=== PATIENT | female | born 1945 | race Caucasian/White ===

== ENCOUNTER → 2018-05-16 | Outpatient (CLI) | payer MEDICARE, OTHER ==
[2018-05-16 10:34] LABS: CALCIUM 8.5 mg/dL (8.4-10.2); POTASSIUM 3.8 mmol/L (3.6-5.0)
== END ==
LOC: LAB 09:29
PROVIDERS: Internal Medicine Cardiovascular Disease
DX: Z51.81 Encounter for therapeutic drug level monitoring (principal); Z79.899 Other long term (current) drug therapy

== ENCOUNTER → 2018-06-06 | Outpatient (CLI) | payer MEDICARE, OTHER ==
[2018-06-06 10:58] LABS: CALCIUM 8.9 mg/dL (8.4-10.2); POTASSIUM 4.6 mmol/L (3.6-5.0)
== END ==
LOC: LAB 10:32
PROVIDERS: Internal Medicine Cardiovascular Disease
DX: Z79.899 Other long term (current) drug therapy (principal)

== ENCOUNTER → 2018-07-18 | Outpatient (CLI) | payer MEDICARE, OTHER | LOC: RAD 09:07 → MAMMO 09:15 | DX: Z13.820 Encounter for screening for osteoporosis (principal); M85.80 Other specified disorders of bone density and structure, unspecified site; Z87.81 Personal history of (healed) traumatic fracture ==

== ENCOUNTER → 2020-03-29 | Outpatient (CLI) | payer MEDICARE, OTHER | LOC: VAS 14:50 → RAD 16:30 | DX: I34.0 Nonrheumatic mitral (valve) insufficiency (principal) ==

== ENCOUNTER → 2020-06-16 | Outpatient (CLI) | payer MEDICARE, OTHER | LOC: MAMMO 11:26 | DX: Z13.820 Encounter for screening for osteoporosis (principal); M81.0 Age-related osteoporosis without current pathological fracture ==

== ENCOUNTER 2023-10-09 11:23 | Inpatient (IN) | payer MEDICARE, OTHER ==
[~2023-10-09] VITALS: Ht 157.5 cm; Wt 63.8 kg
[2023-10-09 11:42] VITALS: BP 150/90
[2023-10-09] MEDS ORDERED: PACERONE200 MG PO (11:47)
[2023-10-09] MEDS ORDERED: ASPIRIN 32325 MG/TAB PO (11:53)
[2023-10-09] MEDS ORDERED: VITAMIN D325 MC7 PO (11:57)
[2023-10-09] MEDS ORDERED: LEXAPRO 10MG10 MG PO (11:58)
[2023-10-09] MEDS ORDERED: SYNTHROID RP0.088 MG PO (11:59)
[2023-10-09] MEDS ORDERED: DESYREL50 MG PO (12:00)
[2023-10-09] MEDS ORDERED: CYCLOBENZ5 MG PO (12:01)
[2023-10-09] MEDS ORDERED: LASIX20 M1 PO (12:03)
[2023-10-09] MEDS ORDERED: ROXICODONE 55 MG/TAB PO (12:04)
[2023-10-09] MEDS ORDERED: POTASSIUM CHLO10 ME7 PO (12:05)
[2023-10-09] MEDS ORDERED: ACETAMINOPHEN325 M1 PO (12:07)
[2023-10-09] MEDS ORDERED: ZOFRAN ODT4 MG PO (12:08)
[2023-10-09] MEDS ORDERED: oxyCODONE/Acetaminophen 5-325 MG TAB PO PRN (14:15)
[2023-10-09 15:43] VITALS: BP 153/72
[2023-10-09 17:34] VITALS: BP 153/72
--- NOTE | 2023-10-09 18:17 | NUR ---
PATIENT ADMITTED FOR SWING BED SERVICES. A&O X 4. INCISION TO RIGHT LATERAL LEG FREE FROM REDNESS OR DRAINAGE. HANSA WERE REMOVED AT ORTHO APPOINTMENT TODAY, STERI STRIPS APPLIED. PATIENT HAS WOUND ON RIGHT HEEL FROM USING THAT LEG TO PUSH SELF BACK INTO HOUSE AFTER FALL. WOUND IS CDI AT THIS TIME. PATIENT IS WBAT WITH TRANSFERS ONLY. MEDS ARE TAKEN WHOLE. DENIES NEEDS AT THIS TIME. CALL LIGHT IN REACH
[2023-10-09] MEDS ORDERED: oxyCODONE 5 MG TAB PO PRN (19:15)
[2023-10-09] MEDS ORDERED: Acetaminophen 325 MG TAB PO PRN (20:15)
[2023-10-09] MEDS ORDERED: Furosemide 20 MG TAB PO PRN (20:15)
[2023-10-09 20:31] VITALS: BP 110/81
[2023-10-09] MEDS ORDERED: Aspirin 325 MG TAB PO SCH (21:00)
[2023-10-09] MEDS ORDERED: Cyclobenzaprine 10 MG TAB PO SCH (21:00)
[2023-10-09] MEDS ORDERED: traZODone 50 MG TAB PO SCH (21:00)
[2023-10-09] MEDS ORDERED: oxyCODONE 5 MG TAB PO SCH (22:45)
[2023-10-09 23:38] LABS: URINE APPEARANCE CLEAR (CLEAR); URINE COLOR YELLOW (YELLOW)
[2023-10-09 23:40] LABS: URINE BILIRUBIN NEGATIVE (NEGATIVE); URINE GLUCOSE NEGATIVE (NEGATIVE); URINE KETONE NEGATIVE (NEGATIVE); URINE PROTEIN(semi-quant) NEGATIVE (NEGATIVE)
[2023-10-09 23:46] LABS: URINE BLOOD TRACE-INTACT (NEGATIVE); URINE LEUKOCYTE ESTERASE TRACE (NEGATIVE); URINE NITRATE NEGATIVE (NEGATIVE)
[2023-10-10 05:30] VITALS: BP 125/75
[2023-10-10] MEDS ORDERED: oxyCODONE 5 MG TAB PO SCH (06:00)
[2023-10-10 06:19] LABS: BASO # 0.06 K/mm3 (0.02-0.10); EOS # 0.17 K/mm3 (0.04-0.40); EOS % 3.8 % (1.0-5.0); HEMATOCRIT 36.7 % (37.0-47.0); HEMOGLOBIN 11.5 g/dL (12.5-16.0); LYMPH# 1.38 K/mm3 (1.50-4.00); MEAN CELL VOLUME 104 fl (78-100); MEAN CORPUSCULAR HEMOGLOBIN 33 pg (27-31); MEAN CORPUSCULAR HGB CONC 31 g/dL (33-37); MEAN PLATELET VOLUME 9.7 fl (7.4-10.4); MONO # 0.45 K/mm3 (0.20-0.80); NEU # 2.35 K/mm3 (1.40-6.50); PLATELET COUNT 264 K/mm3 (130-400); RED BLOOD COUNT 3.52 M/mm3 (4.10-5.30); RED CELL DISTRIBUTION WIDTH 16.2 % (11.5-14.5); WHITE BLOOD COUNT 4.4 K/mm3 (4.8-10.8)
[2023-10-10 06:23] LABS: ALBUMIN 3.4 g/dL (3.4-4.8)
[2023-10-10 06:24] LABS: CALCIUM 8.8 mg/dL (8.3-10.5)
[2023-10-10 06:26] LABS: TOTAL PROTEIN 6.1 g/dL (6.2-8.1)
[2023-10-10 06:27] LABS: TOTAL BILIRUBIN 0.74 mg/dL (0.2-1.2)
--- NOTE | 2023-10-10 07:00 | NUR ---
REPORT RECEIVED FROM LITZY PETTY
--- NOTE | 2023-10-10 07:30 | NUR ---
PATIENT RESTING IN BED WITH EYES OPEN, TV ON. A&Ox4, STATES MINIMAL PAIN TO LEFT LEG AT THIS TIME. ASSESSMENT COMPLETE. PATIENT DENIES OTHER NEEDS OR COMPLAINTS AT THIS TIME. BED ALARM ON, CALL LIGHT WITHIN REACH.
[2023-10-10 08:33] VITALS: BP 130/74
[2023-10-10] MEDS ORDERED: Amiodarone 200 MG TAB PO SCH (09:00)
[2023-10-10] MEDS ORDERED: Escitalopram 10 MG TAB PO SCH (09:00)
--- NOTE | 2023-10-10 10:30 | NUR ---
REPORT TO LITZY JIMENEZ
--- NOTE | 2023-10-10 10:30 | NUR ---
RESUMED CARE FROM LITZY ROBLES.
--- NOTE | 2023-10-10 10:30 | NUR ---
RESUMED CARE FROM [facility] [employer].
[2023-10-10] MEDS ORDERED: Polyethylene Glycol 3350 Powder 17 GM PACKET PO PRN (13:45)
[2023-10-10 17:17] VITALS: BP 118/69
--- NOTE | 2023-10-10 20:15 | NUR ---
Patient CGA to pivot transfer to BSC. Voids and wipes self. Rests self back in bed. Alert and oriented x 4. HS meds reviewed and given. Dressing to right foot CDI. Refuses to float heel RLE and heel protector. LLE elevated on pillow. Declines snack.
--- NOTE | 2023-10-11 04:11 | NUR ---
PATIENT AWAKE. STATES SHE SLEPT WELL THIS NOC. PAIN MED GIVEN. STATES SHE USES [facility] FOR MAIL IN RX. NOT FOUND ON PHARMACY LIST. BACK UP IS [facility].
[2023-10-11 05:46] VITALS: BP 131/75
--- NOTE | 2023-10-11 06:45 | NUR ---
RESUMED CARE FROM LITZY SANTANA.
[2023-10-11] MEDS ORDERED: Docusate Sodium 100 MG CAP PO SCH (09:00)
[2023-10-11 17:28] VITALS: BP 111/71
--- NOTE | 2023-10-11 18:46 | NUR ---
REPORT TO DAYANA ARBOLEDA.
--- NOTE | 2023-10-11 21:26 | NUR ---
Report received from Luba MCGHEE. Patient calls for assist to BR. Assisted 1:1 pivot transfer, NWB to LLE from bed to W/C and W/C to toilet and back. Tolerated well. A/O x4. Rates pain to LLE 10, "a tight band feeling". ice applied. Incision W/A and RG. L heel dressing removed. Heel blackened, dry and boggy. Skin intact. Rewrapped and floated. Assessment completed. HS medications taken whole without difficulty. Denies questions, wants or needs. Bed alarm on. Call light in reach.
[2023-10-12 05:33] VITALS: BP 109/64
--- NOTE | 2023-10-12 06:26 | NUR ---
Rested well. Medication for pain provided per schedule. Up to BR PRN with assist of staff.
--- NOTE | 2023-10-12 06:56 | NUR ---
Report to Elle MCGHEE.
--- NOTE | 2023-10-12 07:05 | NUR ---
RECEIVED REPORT FROM DAYANA ARBOLEDA
[2023-10-12] MEDS ORDERED: Lidocaine 4% Topical Patch TP SCH (09:00)
[2023-10-12 17:27] VITALS: BP 117/62
--- NOTE | 2023-10-12 18:34 | NUR ---
PATIENT IS A&O X 4. HAS BEEN UP TO CHAIR WITH ON ASSIST PIVOT NWB ON LEFT LEG. INCISION IS FREE FROM REDNESS AND DRAINAGE. HAD A SHOWER TODAY. HAS C/O PAIN 7/10 WITH RELIEF FROM PAIN MEDS. DENIES NEEDS AND USES CALL LIGHT SYSTEM.
--- NOTE | 2023-10-12 19:08 | NUR ---
Report received from Elle MCGHEE. Patient resting supine in bed. MACHINE PACKER assisted back from BR. Pivot transfer from Bed to W/C and back. Heel dressing changed at this time, patient had shower today. No change from last nights assessment. L hip incision W/A with peeling SS. +1 edema. Rates pain 02/17. Has schedule roxycodone. States still no BM. Miralax offered and taken at this time. Assessment completed. Denies wants or needs. Bed alarm on. Call light in reach.
--- NOTE | 2023-10-12 22:34 | NUR ---
Having cramps in R ankle area. Had flexeril and oxycodone already. Dressing removed from R heel/ankle area. Tylenol given.
--- NOTE | 2023-10-13 05:24 | NUR ---
Awake, up to BR with assist. Rates pain 6/10 to LLE. Schedule oxycodone and Synthroid taken at this time.
[2023-10-13 05:32] VITALS: BP 106/59
--- NOTE | 2023-10-13 07:00 | NUR ---
REPORT RECEIVED FROM DAYANA ARBOLEDA
--- NOTE | 2023-10-13 07:21 | NUR ---
Report to [facility] HOME ECONOMICS EXPERT.
--- NOTE | 2023-10-13 08:30 | NUR ---
PATIENT UP TO CHAIR. A&Ox4. STATES MINIMAL PAIN TO LEFT UPPER LEG. PATIENT STATES CONCERN WITH CONSTIPATION AND OPIOD PAIN MEDICATIONS. EDUCATION GIVEN. PROVIDER AWARE. PATIENT DENIES OTHER NEEDS OR COMPLAINTS AT THIS TIME. CALL LIGHT WITHIN REACH
[2023-10-13 18:10] VITALS: BP 144/82
--- NOTE | 2023-10-13 19:11 | NUR ---
REPORT TO DAYANA ARBOLEDA
--- NOTE | 2023-10-13 19:41 | NUR ---
Report received from Sara ANNE. Patient assisted to BR via pivot transfer, NWB to LLE, from Bed, W/C then toilet. Transfers well. Independent with cares. Voids and assisted back to bed. Rates pain 6/10, intermittently but tolerable. Has been self weening off narcotic analgesic by spreading times out further. A/O x4. Assessment completed. L hip incision W/A with 1 peeling steri-strip in place. Heel dressing rewrapped. Refused to float heel at this time.
[2023-10-13] MEDS ORDERED: Bisacodyl 5 MG TAB PO SCH (21:00)
--- NOTE | 2023-10-13 21:21 | NUR ---
Having cramps acrossed bridge of R foot again tonight. Has episode last night. Has received flexeril PO HS per schedule. Scheduled oxycodone administered at this time. Bandage removed from R foot at this time for awhile and heel floated.
--- NOTE | 2023-10-14 06:24 | NUR ---
Up to BR with assist. Voids and back to bed. Refused to have R heel rewrapped this AM, has been having cramps in that foot at night and wrapped removed for comfort. Heel floated on pillow.
[2023-10-14 06:36] VITALS: BP 115/73
--- NOTE | 2023-10-14 07:15 | NUR ---
Report to Idalia MCGHEE
[2023-10-14 15:32] VITALS: BP 99/59
[2023-10-14] MEDS ORDERED: oxyCODONE 5 MG TAB PO PRN (17:25)
--- NOTE | 2023-10-14 18:06 | NUR ---
Report received from Neeta MCGHEE. Pt is doing well today. She states she wants to take the roxicodone PRN instead of scheduled because her pain is improving and she is concerned about constipation. will address wit hMinges. Denies other needs, will give report to nightshift nurse who will resumee care.
--- NOTE | 2023-10-14 20:00 | NUR ---
Report received from Iris MCGHEE. Patient assisted to BR by this nurse. Pivot transfer from bed-W/C-toilet and back. Maintains NWB status to LLE. Rates pain to L hip 02/17, incision W/A, RG. Wants pain relief at 2100 with HS medications. Assessment completed. Bed alarm on. Call light in reach.
--- NOTE | 2023-10-14 22:56 | NUR ---
Having foot cramps and L hip cramps again. Sits on EOB with no relief. Dr. Ho notified. Tylenol given at this time. Patient has already had scheduled flexeril and PRN Oxycodone. Labs ordered for AM. Covers removed from feet.
--- NOTE | 2023-10-15 02:14 | NUR ---
Calls for assist to BR. Requests analgesic for pain to L hip and R foot cramp 02/17. Oxycodone taken at this time.
[2023-10-15 05:35] VITALS: BP 125/71
[2023-10-15 07:02] LABS: CALCIUM 8.1 mg/dL (8.3-10.5)
--- NOTE | 2023-10-15 07:05 | NUR ---
Report to Janay MCGHEE.
[2023-10-15 07:09] LABS: MAGNESIUM 1.91 mg/dL (1.60-2.60)
--- NOTE | 2023-10-15 17:52 | NUR ---
PATIENT IS ALERT AND ORIENTED X4. SHE IS PLEASENT. SHE HAD COMPAINTS OF BACK PAIN AND HAS AN ORDER FOR A LIDOCAINE PATCH. SHE HAS COMPLIAINTS OF LEFT KNEE PAIN THAT RADIATES TO LEFT HIP AND DESCRIBES IT CRAMPING. SHE HAD A FRIEND BRING IN PICKLE JUICE TO HELP WITH THAT. PATIENT HAS A PRESSURE ULCER ON RIGHT HEEL.MEPILEX WAS APPLIED FOR OFF LOADING. ULCER MEASURES 8CM X 4 CM. PATIENT IS CONCERNED ABOUT TAKING HER STOOL SOFTENER AND ENDING UP WITH LOOSE STOOLS. SHE WAS INFORMED THAT IF SHE WANTED TO HOLD IT/REFUSE SHE COULD, BUT WITH HER TAKING THE PRN OXYCODONE, HER BOWELS MIGHT SLOW DOWN. SHE VOICED UNDERSTANDING.
[2023-10-15 18:06] VITALS: BP 162/81
--- NOTE | 2023-10-15 20:56 | NUR ---
PT RESTING IN BED. REPORTS PAIN BUT DOES NOT WANT TO TAKE AN OXYCODONE TILL LATER. TYLENOL WAS OFFERED AND TAKEN. NURSE HAD TO EXPLAINE TO PT THAT THE TYLENOL WAS OKAY TO BE TAKEN EVEN IF SHE TAKE OXCODONE LATER. INCISION ON LEFT OUTTER THIGH IS INTACT AND DRY WITH NO REDNESS. PT REMAINES NONWEIGHT BEARING ON LEFT LEG IS ABLE TO PREFORM PIVOT TRANSFERS AND USES WHEELCHAIR FOR TRANSFERES. PT IS ABLE TO MAKE NEEDS KNOWN WHEN NEEDED. CALL LIGHT IN REACH ENCOURAGED TO CALL FOR ASSIST IF NEEDED.
--- NOTE | 2023-10-15 22:00 | NUR ---
PT REQUEST OXYCODONE FOR LEFT HIP/LEG PAIN 02/17.
--- NOTE | 2023-10-15 23:52 | NUR ---
PT UP TO THE BATHROOM COMPLAINS OF CONTINUED KNEE PAIN. PT REQUEST ANOTHER OXYCODONE.
[2023-10-16 05:44] VITALS: BP 136/67
--- NOTE | 2023-10-16 06:45 | NUR ---
RESUMED CARE FROM LITZY ERNANDEZ.
[2023-10-16 07:33] LABS: BASO # 0.04 K/mm3 (0.02-0.10); EOS # 0.11 K/mm3 (0.04-0.40); EOS % 2.7 % (1.0-5.0); HEMATOCRIT 35.1 % (37.0-47.0); LYMPH# 1.33 K/mm3 (1.50-4.00); MEAN CELL VOLUME 103 fl (78-100); MEAN CORPUSCULAR HEMOGLOBIN 32 pg (27-31); MEAN CORPUSCULAR HGB CONC 31 g/dL (33-37); MEAN PLATELET VOLUME 10.1 fl (7.4-10.4); MONO # 0.43 K/mm3 (0.20-0.80); NEU # 2.15 K/mm3 (1.40-6.50); PLATELET COUNT 193 K/mm3 (130-400); RED CELL DISTRIBUTION WIDTH 15.5 % (11.5-14.5); WHITE BLOOD COUNT 4.1 K/mm3 (4.8-10.8)
[2023-10-16 07:47] LABS: ALBUMIN 3.1 g/dL (3.4-4.8)
[2023-10-16 07:49] LABS: CALCIUM 8.2 mg/dL (8.3-10.5)
[2023-10-16 07:50] LABS: TOTAL PROTEIN 5.4 g/dL (6.2-8.1)
[2023-10-16 07:52] LABS: TOTAL BILIRUBIN 0.3 mg/dL (0.2-1.2)
--- NOTE | 2023-10-16 08:30 | NUR ---
PATIENT SITTING IN WHEELCHAIR EATING BREAKFAST UPON ARRIVAL TO ROOM. ASSESSMENT COMPLETED. MEDICATIONS PROVIDED. PATIENT REPORTS PAIN OF 7/10 TO LLE AND LOWER BACK. PRN PAIN MEDICATIONS AND LIDOCAINE PATCH APPLIED. PATIENT ASSISTED TO BED, NWB TO LLE. NEEDS MET. BED ALARMED, CALL LIGHT WITHIN REACH.
[2023-10-16 18:00] VITALS: BP 118/79
--- NOTE | 2023-10-16 18:43 | NUR ---
REPORT TO DAYANA ARBOLEDA.
--- NOTE | 2023-10-16 19:28 | NUR ---
Report received from Luba MCGHEE. Patient resting supine in bed watching TV. A/O x4. Rates pain a "high five" on pain scale. Denies need for analgesic at this time. Incision W/A and SCIENTIFIC PROCESS OPERATOR. R heel dressing CDI. Assisted up to BR via W/C, maintains NWB status to LLE. Did own oral cares and assisted back to bed. PM nutrional supplement provided. Bed alarm on. Call light in reach.
--- NOTE | 2023-10-17 04:03 | NUR ---
Calls and requests analgesic for pain to L hip area 02/17. Oxycodone 5 mg taken at this time.
--- NOTE | 2023-10-17 05:19 | NUR ---
Call and requests pain medication. L leg hurting again 03/19. Tylenol taken and ice pack applied.
--- NOTE | 2023-10-17 05:22 | NUR ---
Rested on and off through the night. Up to BR PRN with 1 assist, pivot transfer. NWB to LLE. Pain controlled utilizing, Oxycodone, Tylenol and ice.
[2023-10-17 05:32] VITALS: BP 131/74
--- NOTE | 2023-10-17 06:45 | NUR ---
RESUMED CARE FROM DAYANA ARBOLEDA.
--- NOTE | 2023-10-17 07:00 | NUR ---
Report to Luba MCGHEE
--- NOTE | 2023-10-17 08:15 | NUR ---
CALL LIGHT ALARMED, PATIENT FOUND IN WHEELCHAIR SHELTER INTO BATHROOM. THIS NURSE ASSISTED WITH GAIT BELT TO TOILET. PATIENT HAS A MEDIUM LOOSE STOOL AND REQUESTED TO HOLD COLACE THIS AM. PATIENT THEN ASSISTED BACK INTO BED WITH GAIT BELT. CONTINUES TO BE NWB TO LLE. ASSESSMENT COMPLETED, AM MEDICATIONS PROVIDED. NEEDS MET. BED ALARMED, CALL LIGHT WITHIN REACH.
--- NOTE | 2023-10-17 10:56 | NUR ---
TRUDI MUÑOZ IN TO ASSESS RIGHT HEEL PRESSURE INJURY.
[2023-10-17 18:29] VITALS: BP 127/68
--- NOTE | 2023-10-17 18:51 | NUR ---
REPORT TO DAYANA ARBOLEDA.
--- NOTE | 2023-10-17 19:15 | NUR ---
Report received from Luba MCGHEE. Resting in bed watching TV. A/O x4. Rates pain 6/10 to LLE, denies need for analgesic at this time. L hip incision W/A, POLE SETTER, healing well. R heel POLE SETTER, floated on pillow. Assessment completed. Bed alarm on. Call light in reach.
--- NOTE | 2023-10-17 23:55 | NUR ---
Calls and requests Tylenol for LLE pain. Almita, 02/17. Tylenol given at this time.
[2023-10-18 05:32] VITALS: BP 120/69
--- NOTE | 2023-10-18 05:57 | NUR ---
Rested on and off through the shift. Up to BR PRN with 1:1 assist, pivot transfers, maintaining NWB status to LLE. Medication for pain PRN.
--- NOTE | 2023-10-18 06:50 | NUR ---
RESUMED CARE FROM DAYANA ARBOLEDA.
--- NOTE | 2023-10-18 06:55 | NUR ---
Report to Luba MCGHEE.
--- NOTE | 2023-10-18 09:59 | NUR ---
ANSWERED PATIENT CALL LIGHT AT THIS TIME. PATIENT ASKING WHEN SCHEDULED 0930 OT SESSION WOULD OCCUR STATING "MY BACK IS HURTING SITTING IN MY WHEELCHAIR WAITING" THIS NURSE SPOKE WITH JESSICA DIEZ WHO STATED PATIENT VISIT WAS MISSED DUE TO ASSISTING WITH ANOTHER PATIENT VISIT THIS AM AND WILL SEE THIS PATIENT IN THE AFTERNOON. PATIENT NOTIFIED OF CHANGE IN SCHEDULE. PATIENT ASSISTED WITH GAIT BELT AND X1 ASSIST FROM WHEELCHAIR TO BED, BED ALARMED, LOWEST POSITION, AND CALL LIGHT WITHIN REACH.
--- NOTE | 2023-10-18 14:18 | NUR ---
OBSERVED PATIENT WHEELING AROUND IN [place] WITH PHYSICAL THERAPY. PATIENT WAS FORCEFULLY USING HEELS OF HER FEET TO MOVE HERSELF AROUND IN THE WC. SPOKE TO STONEY MICHAEL WITH CONCERN FOR THE HEALING OF PRESSURE SORE ON RIGHT HEEL WITH THE AMOUNT OF PRESSURE AND FORCE BEING PUT ON HER HEEL WHEN MOVING HERSELF IN WC. KISHA AGREED TO TRY A POST OP SHOE ON PATIENT'S RT FOOT TO PROTECT THE HEEL, AND MAY USE PADDING INSIDE THE HEEL OF THE SHOE IF NEEDED. I EXPLAINED THE NEED FOR THE SHOE TO PATIENT AND METAL CUTTER, WHO WAS IN THE ROOM. PT WAS AGREEABLE TO USING THE SHOE AND METAL CUTTER HELPED SHOW HER HOW SHE COULD AVOID PRESSURE ON HER HEEL BY TAKING SMALLER STEPS WITH HER FEET AND KEEPING THE FOOT MORE FLAT, OR USE THE TOE OF THE SHOE RATHER THAN THE HEEL TO MOVE HERSELF FORWARD.
[2023-10-18 15:10] VITALS: BP 126/76
--- NOTE | 2023-10-18 15:10 | NUR ---
Amarilis (daughter) changed the appointment time to 1:40 pm on October 30. This is an Ortho follow up. Amarilis will transfer to appoinment. We are hoping to be discharged this date as well.
--- NOTE | 2023-10-18 18:34 | NUR ---
REPORT TO DAYANA ARBOLEDA.
--- NOTE | 2023-10-18 20:57 | NUR ---
Report received from Luba MCGHEE. Patient resting in bed with eyes closed. No signs of pain, distress. Respirations even and non-labored. No signs of distress. Bed alarm on. Call light in reach.
--- NOTE | 2023-10-18 21:13 | NUR ---
Awake now, up to BR via W/C, pivot transfer. Rates pain 6/10 to L hip, LE. Incision W/A, healing. Oxycodone taken with HS medications. Assessment completed. Denies questions, wants or needs. Bed alarm on. Call light in reach.
--- NOTE | 2023-10-19 05:36 | NUR ---
Rested well. Up to BR PRN with 1 assist, pivot transfer to W/C. Medication provided x2 for L hip pain.
[2023-10-19 05:43] VITALS: BP 113/52
--- NOTE | 2023-10-19 06:55 | NUR ---
Report to Iris MCGHEE.
--- NOTE | 2023-10-19 07:00 | NUR ---
Report received from PN. Isatu
--- NOTE | 2023-10-19 09:03 | NUR ---
Assessment charted. Pt in chair at side of bed, doing well, pain rated at 5/10, discussed options for tylenol but pt refused. Pt states she feels she is doing very well,anticipating discharge but understands that she is still NWB to affected hip until cleared by doctor. alert and oriented, will continue to monitor.
--- NOTE | 2023-10-19 12:40 | NUR ---
Spoke with Janny's Daughter Amarilis Bailey. Amarilis states that they have the ability to get a wheelchair and walker and bedside commode to her when she is ready for discharge. Order and Face to Face signed by Odin Schaefer NP from Clinic.
[2023-10-19 17:14] VITALS: BP 119/70
--- NOTE | 2023-10-19 18:09 | NUR ---
Pt has done well over shift, PRN pain meds given per request. Up with therapy, family visited this afternoon. Denies needs, resting in bed at this time, will give report to nightshift nurse who resume care.
[2023-10-20 05:52] VITALS: BP 120/69
--- NOTE | 2023-10-20 07:00 | NUR ---
RESUMED CARE FROM LITZY ERNANDEZ.
--- NOTE | 2023-10-20 13:09 | NUR ---
REPORT TO LITZY ALFONSO.
--- NOTE | 2023-10-20 17:22 | NUR ---
Report given to LITZY Tabares.
[2023-10-20 18:27] VITALS: BP 144/71
[2023-10-21 05:45] VITALS: BP 124/75
--- NOTE | 2023-10-21 09:18 | NUR ---
patient alert and oriented, patient rates pain at 7/10. Medications delivered by Precia AUDIO NARRATOR. patient reminded to keep left leg non-weight bearing. patient now resting in bed with heel floats on and call light within reach.
[2023-10-21 17:14] VITALS: BP 145/82
--- NOTE | 2023-10-22 04:57 | NUR ---
Pt slept well overnight after taking oxycodone at 2230. PT only woke up twice asking once for another blanket and the other time wanting me to put her heel protector on her right foot. no other complaints or concerns.
[2023-10-22 05:37] VITALS: BP 135/80
--- NOTE | 2023-10-22 09:21 | NUR ---
PATIENT WAS ASSISTED X1 WITH TRANSFERS. SHE IS ABLE TO INDEPENDENTLY DRESS, ORAL CARE AND GODFREY CARE. SHE IS PLEASENT. HER PAIN THIS MORNING WAS 6\10 IN HER LEFT THIGH AREA. SHE DESCRIBES IT TIGHT AND DENIES HAVING CRAMPING FOR THE PAST FEW DAYS. THERE IS A PRESSURE SORE ON HER RIGHT HEEL. PATIENT STATES THAT PART OF THE SCAB WAS REMOVED AROUND THE HEEL, TO HELP PROMOTE HEALING. PART OF THE SCAB IS PRESENT AROUND REDDENED SKIN WHICH IS BLANCHABLE. THE HEEL IS PAINFUL/SENSITIVE WHEN TOUCHED. PATIENT IS IN BED AT THIS TIME RESTING, AWAITING HER THERAPY APPOINTMENTS. SHE REFUSED HER COLACE THIS MORNING, SHE IS WORRIED ABOUT HAVE LOOSE STOOLS.
--- NOTE | 2023-10-22 14:44 | NUR ---
Spoke with Janny and her Daughter Amarilis, They are planing for discharge on 10/30/23 in the morning in the afternoon she has an ortho appointment at 1:45 pm. Janny lives alone and not able to have someone with her during the day. Her family works. Janny is normally independent high fall risk. Equipment and home health will be ready on 10/30/23. Daughter, Amarilis and Janny are in agreement with the plan.
[2023-10-22 17:24] VITALS: BP 149/88
--- NOTE | 2023-10-22 20:00 | NUR ---
Patient resting comfortably in bed. HS meds given. Denies needs at this time. Call light within reach, bed alarm on.
--- NOTE | 2023-10-22 21:00 | NUR ---
Patient requesting PRN oxycodone for R thigh pain.
--- NOTE | 2023-10-22 23:00 | NUR ---
Patient requesting PRN tylenol for R dorsal foot pain. Pain started after a trip to the bathroom. Ice packs administered to foot, tylenol given. Encouraged to call if pain is not relieved by interventions. At this time, patient states she has no pain at all to L hip.
[2023-10-23 06:07] VITALS: BP 127/77
--- NOTE | 2023-10-23 16:21 | NUR ---
PATIENT HAS BEEN PLEASENT PER HER USUAL THIS SHIFT. SHE HAD COMPLAINTS OF HER BACK HURTING WHILE IN THE ROOM CHAIR. A DIFFERENT RECLINER WAS BROUGHT IN, AND SHE STATES IT IS MORE COMFORTABLE. THIS SHIFT CONTINUES TO HAVE BACK PAIN, WHICH IS CHRONIC, HER LEFT THIGH AREA FROM SURGERY AND RIGHT HEEL PAIN FROM THE PRESSURE ULCER SHE SUBSTAINED FROM HER FALL PRIOR TO BEING ADMITTED. SHE HAS PRN OXYCODONE AND TYLENOL FOR PAIN. SHE HAD BEEN ASKING FOR THE OXYCODONE, BUT REQUESTED THE TYLENOL THIS MORNING. SHE IS WORKING WELL WITH THERAPY.
[2023-10-23 18:01] VITALS: BP 136/82
[2023-10-24 05:38] VITALS: BP 120/74
--- NOTE | 2023-10-24 16:00 | NUR ---
Pt continues to have pain to L leg, well controlled by oxycodone. c/o HOPE this AM, APAP given. Continues to follow wt bearing precautions with stand/pivot transfers. Report to Fatoumata Padgett LPN for transfer of care.
--- NOTE | 2023-10-24 16:12 | NUR ---
Report received from Tiffani MCGHEE. Patient resting in bed with visitors in room. Denies wants or needs at this time.
[2023-10-24 17:22] VITALS: BP 152/83
--- NOTE | 2023-10-24 19:03 | NUR ---
Report to Bel MCGHEE.
[2023-10-25 05:29] VITALS: BP 143/57
--- NOTE | 2023-10-25 07:00 | NUR ---
REPORT RECEIVED FROM LITZY SCHMIDT
--- NOTE | 2023-10-25 08:15 | NUR ---
PATIENT UP TO CHIAR FOR MORNING MEAL. A&Ox4, STATES PAIN TO LEFT LEG. PATIENT ASSISTED TO BATHROOM AT THIS TIME. PATIENT WILL CALL WHEN FINISHED. DENIES OTHER NEEDS OR COMPLAINTS AT THIS TIME.
--- NOTE | 2023-10-25 12:54 | NUR ---
REPORT TO LITZY GALLAGHER
[2023-10-25] MEDS ORDERED: Lidocaine 4% Topical Patch TP PRN (14:00)
[2023-10-25 14:55] VITALS: BP 121/68
--- NOTE | 2023-10-26 05:22 | NUR ---
ASSISTED PT TO BATHROOM MULTIPLE TIMES OVERNIGHT. PT SLEPT THE MAJORITY OF THE NIGHT. PT DID REQUEST PAIN MEDICATION EARLIER IN THE SHIFT FOR LEG PAIN DUE TO "THERAPY WORKING HER EXTRA HARD LATELY"
[2023-10-26 05:25] VITALS: BP 118/69
--- NOTE | 2023-10-26 07:00 | NUR ---
REPORT RECEIVED FROM LITZY ROJAS
[2023-10-26 07:06] LABS: BASO # 0.02 K/mm3 (0.02-0.10); EOS # 0.15 K/mm3 (0.04-0.40); EOS % 3.8 % (1.0-5.0); HEMATOCRIT 34.7 % (37.0-47.0); HEMOGLOBIN 10.9 g/dL (12.5-16.0); LYMPH# 1.11 K/mm3 (1.50-4.00); MEAN CELL VOLUME 103 fl (78-100); MEAN CORPUSCULAR HEMOGLOBIN 32 pg (27-31); MEAN CORPUSCULAR HGB CONC 31 g/dL (33-37); MEAN PLATELET VOLUME 9.9 fl (7.4-10.4); MONO # 0.39 K/mm3 (0.20-0.80); NEU # 2.27 K/mm3 (1.40-6.50); PLATELET COUNT 180 K/mm3 (130-400); RED BLOOD COUNT 3.38 M/mm3 (4.10-5.30); RED CELL DISTRIBUTION WIDTH 14.5 % (11.5-14.5); WHITE BLOOD COUNT 3.9 K/mm3 (4.8-10.8)
[2023-10-26 07:13] LABS: CALCIUM 8.2 mg/dL (8.3-10.5)
[2023-10-26 07:14] LABS: TOTAL PROTEIN 5.3 g/dL (6.2-8.1)
[2023-10-26 07:16] LABS: TOTAL BILIRUBIN 0.4 mg/dL (0.2-1.2)
--- NOTE | 2023-10-26 08:20 | NUR ---
PATIENT UP TO CHIAR FOR MORNING MEAL. A&Ox4, STATES MINIMAL PAIN TO LEFT LEG. PRN PAIN MEDS OFFERED AT THIS TIME. PATIENT DENIES OTHER NEEDS OR COMPLAINTS AT THIS TIME. CHAIR ALARM ON, CALL LIGHT WITHIN REACH.
--- NOTE | 2023-10-26 13:00 | NUR ---
REPORT TO LITZY DALEY
--- NOTE | 2023-10-26 13:09 | NUR ---
Assumed care from DAYANA Ruiz
[2023-10-26 17:35] VITALS: BP 144/89
--- NOTE | 2023-10-26 18:08 | NUR ---
Patient A&O x 4. Up with one assist to and from toilet, bed and chair. NWB on left leg. Reports some loose stools today, held stool softener. Rates pain 6/10, but wanted to wait to take meds until later. Uses call system for needs.
--- NOTE | 2023-10-26 21:23 | NUR ---
PT RESTING IN BED COMFORTABLY. RATED PAIN 6/10 ON LEFT THIGH. W/C TO BATHROOM AND BACK. ASSESSMENT COMPLETE. RAW SKIN NOTED ON R HEEL, IMROVING FROM LAST WEEK. MEDICATIONS TAKEN PO WITHOUT DIFFICULTY. NO OTHER COMPLAINTS AT THIS TIME. CALL LIGHT WITHIN REACH, BED ALARM.
[2023-10-27 05:51] VITALS: BP 148/75
--- NOTE | 2023-10-27 07:11 | NUR ---
Assumed care from LITZY Mcallister
--- NOTE | 2023-10-27 09:18 | NUR ---
PATIENT UP WITH ONE ASSIST PIVOT TRANSFER TO AND FROM BED, WHEELCHAIR AND TOILET. CONTINUES WITH NWB TO LEFT LEG. REPORTS THAT SHE IS TRYING TO DECREASE AMOUNT OF OXY, RATES PAIN 5/10 THIS MORNING. REQUESTED TO HOLD STOOL SOFTENER UNTIL SHE IS SURE SHE NEEDS IT TODAY YESTERDAY REPORTS LOOSE STOOLS. PLEASANT, A&O X 4 AND LOOKING FORWARD TO GOING HOME. DENIES FURTHER NEEDS AND USES CALL SYSTEM APPROPRIATELY
[2023-10-27 17:25] VITALS: BP 112/67
--- NOTE | 2023-10-27 18:26 | NUR ---
PATIENT RESTING IN ROOM. DENIES NEEDS. CALL LIGHT IN REACH
--- NOTE | 2023-10-27 21:31 | NUR ---
PT RESTING IN BED. ASSISSTED TO BATHROOM VIA WHEELCHARI. PIVOT TRANSFER. MEDICATION TAKEN PO. ASSESSMENT COMPLETE. PT REPORTED TIGHTNESS IN LEFT LEG AND PAIN 02/17, SEE NOV. PT BACK TO BED. SIDE [id number], BED ALARM ON, CALL LIGHT WITHIN REACH.
--- NOTE | 2023-10-27 22:01 | NUR ---
pt reporting having tightness still in LLE, see mar.
[2023-10-28 05:34] VITALS: BP 120/73
--- NOTE | 2023-10-28 08:42 | NUR ---
REPORT FROM LITZY GALLAGHER. PT. REQUESTS EXTRA LIDODERM PATCH FOR NECK THIS AM. HAD LARGE LOOSE STOOL. OTHERWISE NO CONCERNS OR QUESTIONS. STATES SHE IS LOOKING FORWARD TO GOING HOME THIS WEEK.
[2023-10-28 17:14] VITALS: BP 138/68
--- NOTE | 2023-10-28 20:28 | NUR ---
PT SITTING IN BED AND WATCHING TV. PT REPORTS PAIN BUT DOES NOT WANT PAIN MEDS TILL AFTER 2100. PT DENIES ANY OTHE NEEDS AT THIS TIME. CALL LIGHTIN REACH OF PT IF NEEDS ARISE
--- NOTE | 2023-10-29 05:34 | NUR ---
PT ASSISTED TO THE BATHROOM DENIES PAIN WHEN ASKED. PT IS RELL TRANSFER SELF WITHNO HELP FROM STAFF. PT EXPRESSES EXCIETMENT ABOUT GOING HOME. PT RETURNED TO BED, CALL LIGHT IN REACH OF PT.
[2023-10-29 05:35] VITALS: BP 130/68
--- NOTE | 2023-10-29 06:56 | NUR ---
REPORT GIVEN TO Helio MANUEL RN
--- NOTE | 2023-10-29 10:33 | NUR ---
PATIENT IN RECLINER DURING BREAKFAST. SHE IS PLEASENT. PATIENT REQUESTED PRN OXYCODONE FOR NECK PAIN. SHE HAS PRN LIDOCAINE PATCHES, BUT STATES THEY DON'T STAY IN PLACE AND NO NEED TO WASTE THEM. ICE PACK WAS PLACED ON NECK PER PATIENT REQUEST. PATIENT HAS PRESSURE ULCER ON RIGHT HEEL, THAT IS INTACT. SHE DENIES PAIN DURING PALPATION. AREA IS BLANCHABLE. SMALL AMOUNT OF DRY SKIN AROUND ULCER. THERE IS A 0.3CM [place] TRIBE ABRAISION ON TOP OF LEFT PINKY TOE. PATIENT STATES SHE THINKS SHE HIT IT ON THE BATHROOM DOOR. PATIENT REFUSED PHYSICAL THERAPY THIS MORNING DUE TO NECK PAIN. AND DOESN'T WANT TO BE WORN OUT BEFORE HER DISCHARGE AND FOLLOW UP APPT TOMORROW. SHE STATES THAT SHE JUST DOESN'T WANT TO DO ANY THERAPY THAT WILL MAKE HER NECK FEEL WORSE.
[2023-10-29 16:01] VITALS: BP 117/69
[2023-10-30 05:37] VITALS: BP 133/75
--- NOTE | 2023-10-30 08:00 | NUR ---
PT ASSISTED TO CHAIR AT BEDSIDE, REPORTS THAT SHE WANTS TO WAIT ON ANY PAIN MEDICATION UNTIL CLOSER TO DISCHARGE. NOTIFIED THIS RN THAT HER DAUGHTER WOULD BE HERE AROUND NOON FOR DISCHARGE. ERP NOTIFIED. A/O AT THIS TIME, NO DIFFICULTY WITH MEDICAION ADMINISTRATION, CALL LIGHT WITHIN REACH.
[2023-10-30] MEDS ORDERED: OXYCODONE HYDROC5 M1 PO (09:47)
--- NOTE | 2023-10-30 12:18 | NUR ---
PT DISCHARGED BY WHEELCHAIR WITH DAUGHTER. ALERT WITHOUT DISTRESS ON DISCHARGE. ALL BELONGINGS TAKEN BY PATIENT UPON DISCHARGE PER TECH. PT PREVIOUSLY VERBALIZED UNDERSTANDING ON DISCHARGE, FOLLOW UP, AND MEDICATION INSTRUCTIONS GIVEN. ALL PAPERWORK SINED AND FILED.
== END 2023-10-30 13:01 | disposition home or self-care (01) | DRG 560 ==
LOC: MED/SURG 11:23
PROVIDERS: Family Medicine; Nurse Practitioner; Physician Assistant; ADMIT Nurse Practitioner Family
DX: S72.452D Displaced supracondylar fracture without intracondylar extension of lower end of left femur, subsequent encounter for closed fracture with routine healing (principal); D62 Acute posthemorrhagic anemia; I42.8 Other cardiomyopathies; I48.91 Unspecified atrial fibrillation; M81.0 Age-related osteoporosis without current pathological fracture; E03.9 Hypothyroidism, unspecified; R53.1 Weakness; W18.30XD Fall on same level, unspecified, subsequent encounter; Z85.3 Personal history of malignant neoplasm of breast; Z95.818 Presence of other cardiac implants and grafts; F32.A Depression, unspecified